=== PATIENT | female | born 2000 | race Caucasian/White ===

== ENCOUNTER 2024-02-08 09:09 | Emergency (ER) | payer SELFPAY ==
[~2024-02-08] VITALS: Ht 154.9 cm; Wt 48.0 kg
[2024-02-08 09:24] VITALS: O2SAT 100
[2024-02-08] MEDS: SODIUM CHLORIDE 0.9% 1,000 ML IV ONE (09:56)
[2024-02-08] MEDS: ACETAMINOPHEN 325MG TABLET PO ONE (09:58)
[2024-02-08] MEDS: METOCLOPRAMIDE HCL 10MG/2ML VIAL IV ONE (09:59)
[2024-02-08 11:28] VITALS: BP 94/45; PULSE 67; RESP 14; TEMP 98.7
== END 2024-02-08 12:03 | disposition home or self-care (01) ==
LOC: ER 09:09
DX: R51.9 Headache, unspecified (principal)
CPT/HCPCS: 99283; 96374; 96361; J2765; J7030